=== PATIENT | female | born 1965 | race Caucasian/White ===

== ENCOUNTER → 2018-12-16 | Outpatient (CLI) | payer OTHER ==
[~2018-12-16] MED LIST: FLEXERIL10 MG PO; IRON CHELATED325 MG PO; KCL PO; LASIX20 MG PO; MOTRIN800 MG PO; NAPROSYN500 MG PO; ROBITUSSIN DM 105 ML PO; SYNTHROID25 MCG PO; Synthroid,Levo25 MCG PO; VIBRAMYCIN100 MG PO; VITAMIN C1 CRY; ZOFRAN4 MG PO
== END | disposition home or self-care (01) ==
LOC: LAB 16:29
DX: R53.83 Other fatigue (principal)

== ENCOUNTER 2019-01-08 17:46 | Emergency (ER) | payer OTHER ==
[~2019-01-08] VITALS: Ht 175.2 cm; Wt 167.8 kg
--- NOTE | ~2019-01-08 | EKG ---
[place], [place] ELECTROCARDIOGRAM REPORT NAME: MATHEUS GARCIA UNIT #: [id number] ROOM: DOCTOR: [facility] DRAFT REPORT BIRTHDATE: [birth year] [facility] Test Date: 2019-01-08 Test Time: 19:35:34 Pat Name: MATHEUS GARCIA Department: Room: Gender: Clinical Practitioner: : [id number] Requested By: DAHIANA MCPHERSON Order Number: [id number] Reading MD: Measurements Intervals [place] Rate: 120 P: 63 SC: 153 QRS: 93 QRSD: 88 T: 47 QT: 309 QTc: 437 Interpretive Statements Sinus tachycardia Borderline right axis deviation Consider left ventricular hypertrophy No previous ECG available for comparison CM:EKGRPT:ELECTROCARDIOGRAM REPORT [id number] DAHIANA MARTINEZ DRAFT REPORT DAHIANA MCPHERSON M.D.
--- NOTE | ~2019-01-08 | EKG ---
[place], [place] ELECTROCARDIOGRAM REPORT NAME: MATHEUS GARCIA UNIT #: [id number] ROOM: DOCTOR: [facility] DRAFT REPORT BIRTHDATE: [birth year] [facility] Test Date: 2019-01-08 Test Time: 17:49:38 Pat Name: MATHEUS GARCIA Department: ED Room: 3 Gender: F Junior Systems Administrator: : [id number] Requested By: DAHIANA MCPHERSON Order Number: [id number] Reading MD: Hardy Joy MD Measurements Intervals [place] Rate: 82 P: 66 NC: 154 QRS: 36 QRSD: 104 T: 38 QT: 406 QTc: 475 Interpretive Statements Sinus rhythm Possible left atrial enlargement Electronically Signed On 01-09-2019 4:52:34 PDT by Hardy Joy MD CM:EKGRPT:ELECTROCARDIOGRAM REPORT [id number] DAHIANA MARTINEZ DRAFT REPORT DAHIANA MCPHERSON M.D.
[2019-01-08 18:03] LABS: BASO % 1.3 % (0.0-1.0); EOS # 0.2 10*3/uL (0.0-0.4); EOS % 7.6 % (1.0-4.0); HEMATOCRIT 30.9 % (37.0-47.0); HEMOGLOBIN 9.7 g/dl (12.0-16.0); LYMPH # 0.8 10*3/uL (1.3-4.4); LYMPH % 25.1 % (27.0-41.0); MEAN CORPUSCULAR HGB CONC 31.4 g/dl (33.0-37.0); MONO # 0.5 10*3/uL (0.1-1.0); MONO % 15.2 % (3.0-9.0); NEUT # 1.5 10*3/uL (2.3-7.9); NEUT % 50.5 % (47.0-73.0); PLATELET COUNT AUTOMATED 92 10*3/uL (130-400); RED BLOOD COUNT 3.47 10*6/uL (4.10-5.10); RED CELL DISTRI WIDTH 17.2 % (0-14.5)
[2019-01-08 18:17] LABS: ACT PARTIAL THROMBO TIME 30.4 SECONDS (20.0-32.1); INTERNATIONAL NORM RATIO 1.4 (2.0-3.5)
[2019-01-08 18:22] LABS: ALBUMIN 2.7 gm/dl (3.1-4.5); ALKALINE PHOSPHATASE 100 U/L (45-117); BUN 7 mg/dl (7-24); CHLORIDE 109 mmol/L (98-107); CREATININE 0.69 mg/dL (0.55-1.02); POTASSIUM 3.5 mmol/L (3.5-5.1); SGOT/AST 41 IU/L (3-35); SGPT/ALT 20 U/L (12-78); SODIUM 142 mmol/L (136-145); TOTAL PROTEIN 6.1 gm/dL (6.4-8.2)
[2019-01-08 18:23] LABS: TROPONIN I < 0.015 ng/ml (<0.045)
== END 2019-01-08 23:49 | disposition home or self-care (01) ==
LOC: ED 17:46
PROVIDERS: Emergency Medicine
DX: M25.512 Pain in left shoulder (principal); R06.02 Shortness of breath; E66.01 Morbid (severe) obesity due to excess calories; Z98.84 Bariatric surgery status

== ENCOUNTER 2020-08-10 23:21 | Emergency (ER) | payer OTHER ==
[~2020-08-10] VITALS: Ht 167.6 cm; Wt 122.5 kg
[2020-08-11 00:10] LABS: BASO # 0.1 10*3/uL (0.0-0.1); BASO % 0.6 % (0.0-1.0); EOS # 0.2 10*3/uL (0.0-0.4); HEMATOCRIT 29.7 % (37.0-47.0); LYMPH # 0.4 10*3/uL (1.3-4.4); LYMPH % 5.3 % (27.0-41.0); MEAN CELL VOLUME 90.3 fl (81.0-99.0); MEAN CORPUSCULAR HGB 27.1 pg (27.0-31.0); MEAN PLATELET VOLUME 11.1 fl (9.6-12.3); MONO # 0.3 10*3/uL (0.1-1.0); MONO % 3.3 % (3.0-9.0); NEUT % 88.5 % (47.0-73.0); PLATELET COUNT AUTOMATED 121 10*3/uL (130-400); RED BLOOD COUNT 3.29 10*6/uL (4.10-5.10); RED CELL DISTRI WIDTH 17.1 % (0-14.5); WHITE BLOOD COUNT 7.9 10*3/uL (4.8-10.8)
[2020-08-11 00:27] LABS: ALBUMIN 2.8 gm/dl (3.1-4.5); ALKALINE PHOSPHATASE 135 U/L (45-117); BUN 26 mg/dl (7-24); CHLORIDE 111 mmol/L (98-107); CREATININE 1.11 mg/dL (0.55-1.02); LIPASE 90 U/L (73-393); POTASSIUM 4.2 mmol/L (3.5-5.1); SGOT/AST 53 IU/L (3-35); SGPT/ALT 27 U/L (12-78); SODIUM 142 mmol/L (136-145); TOTAL PROTEIN 5.4 gm/dL (6.4-8.2)
[2020-08-11 02:19] LABS: BILIRUBIN 1+ (Negative); BLOOD Negative (Negative); CLARITY Cloudy (Clear); COLOR Orange (Yellow); GLUCOSE Negative (Negative); KETONE Trace (Negative); LEUKO ESTERASE Trace (Negative); NITRITE Positive (Negative); PH 5.5 (4.5-8.0); SPECIFIC GRAVITY 1.025 (1.001-1.030)
[2020-08-11 02:28] LABS: BACTERIA 4+
[2020-08-11 02:29] LABS: EPITHELIAL CELLS 31-40; MUCOUS 2+
[2020-08-11] MEDS ORDERED: ACYCLOVIR15 GM T (05:36)
[2020-08-11] MEDS ORDERED: MIDODRINE HCL10 MG PO (05:38)
== END 2020-08-11 14:00 | disposition designated cancer center or children's hospital (05) ==
LOC: ED 23:21
PROVIDERS: Internal Medicine
DX: N17.9 Acute kidney failure, unspecified (principal); K65.2 Spontaneous bacterial peritonitis; K74.60 Unspecified cirrhosis of liver; E88.09 Other disorders of plasma-protein metabolism, not elsewhere classified; R79.89 Other specified abnormal findings of blood chemistry; N18.9 Chronic kidney disease, unspecified; D64.9 Anemia, unspecified; R65.20 Severe sepsis without septic shock; E03.9 Hypothyroidism, unspecified; Z20.822 Contact with and (suspected) exposure to COVID-19; Z79.899 Other long term (current) drug therapy

== ENCOUNTER 2022-05-07 02:17 | Emergency (ER) | payer OTHER ==
[~2022-05-07] VITALS: Ht 175.2 cm; Wt 113.4 kg
[~2022-05-07 02:17] MED LIST changes: +ACYCLOVIR15 GM T; +MIDODRINE HCL10 MG PO
[2022-05-07 03:19] LABS: LIPASE 32 U/L (12-53)
[2022-05-07 05:48] LABS: ALKALINE PHOSPHATASE 118 U/L (46-116); BUN 27 mg/dl (9-23); CHLORIDE 103 mmol/L (98-107); POTASSIUM 4.2 mmol/L (3.4-5.1); SGPT/ALT 36 U/L (10-49); TOTAL PROTEIN 6.6 gm/dL (6.0-8.0)
[2022-05-07 06:07] LABS: BASO % 0.6 % (0.0-1.0); EOS # 0.1 10*3/uL (0.0-0.4); EOS % 2.5 % (1.0-4.0); HEMATOCRIT 36.5 % (37.0-47.0); LYMPH # 0.3 10*3/uL (1.3-4.4); LYMPH % 4.9 % (27.0-41.0); MEAN CELL VOLUME 81.3 fl (81.0-99.0); MEAN CORPUSCULAR HGB 26.9 pg (27.0-31.0); MEAN CORPUSCULAR HGB CONC 33.2 g/dl (33.0-37.0); MEAN PLATELET VOLUME 9.8 fl (9.6-12.3); MONO # 0.5 10*3/uL (0.1-1.0); NEUT # 4.2 10*3/uL (2.3-7.9); NEUT % 81.4 % (47.0-73.0); PLATELET COUNT AUTOMATED 196 10*3/uL (130-400); RED BLOOD COUNT 4.49 10*6/uL (4.10-5.10); WHITE BLOOD COUNT 5.1 10*3/uL (4.8-10.8)
[2022-05-07] MEDS ORDERED: AMOX-CLAV 875-1 EACH PO (09:25)
[2022-05-07] MEDS ORDERED: VIBRAMYCIN HYC100 MG PO (09:25)
== END 2022-05-07 10:15 | disposition home or self-care (01) ==
LOC: ED 02:17
PROVIDERS: Student in an Organized Health Care Education/Training Program
DX: R07.89 Other chest pain (principal); C78.00 Secondary malignant neoplasm of unspecified lung; E03.9 Hypothyroidism, unspecified; Z79.899 Other long term (current) drug therapy